=== PATIENT | male | born 1980 | race Caucasian/White ===

== ENCOUNTER 2020-11-23 19:49 | Emergency (ER) | payer MEDICAID, SELFPAY ==
[2020-11-23 20:38] VITALS: BP 168/88; PULSE 83; RESP 16; TEMP 36.7; O2SAT 97; BMI 40.9
--- NOTE | 2020-11-23 21:39 | ED_ITS ---
HPI - Dental/Oral General Chief complaint: Dental/Oral Stated complaint: Dental pain Time Seen by Provider: 11/23/20 21:39 Source: patient Mode of arrival: ambulatory Limitations: no limitations History of Present Illness HPI Narrative: right sided dental pain for the last 3 days. Complaint: tooth pain Onset (ago): day(s) Duration: constant Severity: moderate Associated symptoms: gum swelling Related Data Previous Rx's Medication Instructions Recorded amoxicillin-pot clavulanate 1 tab PO BID #14 tab 11/23/20 [Augmentin] Allergies Allergy/AdvReac Type Severity Reaction Status Date / Time No Known Allergies Allergy Verified 11/23/20 20:37 Review of Systems Constitutional: Constitutional: Reports no additional constitutional complaints Eyes: Eyes: Reports no additional eye complaints ENT: Denies dizziness Cardiovascular: Cardiovascular: Reports no additional cardiovascular complaints Respiratory: Respiratory: Reports as per HPI Gastrointestinal: Gastrointestinal: Reports no additional gastrointestinal complaints Musculoskeletal: Musculoskeletal: Reports no additional musculoskeletal complaints Integumentary/Breasts: Skin/Breast: Denies rash Neurologic: Reports system reviewed and no additional complaints, except as documented, Denies dizziness and Denies Sensory deficit (Neuro) Psychiatric: Psychiatric: Denies anxiety [facility] Past Medical History Medical History Asthma Social History Social History Smoking Status: Current every day smoker Use of substances other than those prescribed or required for medical reasons: No Advance Directives: No Advance Directives Information Provided: Yes Physical Exam Vital Signs: Vital Signs: Last Vital Signs Temp 98.0 F 11/23/20 20:38 Pulse 83 11/23/20 20:38 Resp 16 11/23/20 20:38 BP 168/88 H 11/23/20 20:38 Pulse Ox 97 11/23/20 20:38 Body Mass Index 40.9 Neuro: Sensory Exam: No Sensory deficit (Neuro) Procedures Procedure Narrative Procedure Narrative: 1% without epi with lidocaine used for anesthesia. 11 blade used, pus removed. Patient tolerated procedure well Discharge Plan Discharge Clinical Impression: Dental abscess Patient Disposition: Home, Self-Care Instructions: Dental Abscess (ED) Additional Instructions: half peroxide with water, gargle and spit 3 times a day Prescriptions: New amoxicillin-pot clavulanate [Augmentin] 655-125 mg tablet 1 tab PO BID Qty: 14 RF: 0 Referrals: Physician,None [Primary Care Provider] - 2 days
[2020-11-23] MEDS: NaPROXEN 500 MG TABLET PO (22:08)
[2020-11-23] MEDS: Amoxicillin/Potassium Clav 875 MG TABLET PO (22:08)
[2020-11-23] MEDS: Lidocaine HCl 2 % MPF 5 ML VIAL INFILTRATI (23:07)
--- NOTE | 2020-11-23 23:18 | PC.NURSE ---
PT DENTAL ABSCESS DRAINED FROM RIGHT LOWER SIDE OF MOUTH BY DR. CHANG. LARGE AMOUNT OF PUSS REMOVED WITH GOOD EFFECT.
== END 2020-11-23 23:20 | disposition home or self-care (01) ==
PROVIDERS: Emergency Provider Emergency Medicine
DX: K04.7 Periapical abscess without sinus (principal); K08.89 Other specified disorders of teeth and supporting structures; F17.200 Nicotine dependence, unspecified, uncomplicated; Z71.6 Tobacco abuse counseling
CPT/HCPCS: 41800; 99284

== ENCOUNTER 2021-06-04 17:13 | Emergency (ER) | payer MEDICAID, SELFPAY ==
[2021-06-04 18:16] VITALS: BP 129/78; PULSE 86; RESP 18; TEMP 37; O2SAT 96; BMI 40.8
--- NOTE | 2021-06-04 18:54 | ED.DENTAL ---
HPI - Dental/Oral General Chief complaint: Dental/Oral Stated complaint: dental pain Source: patient Mode of arrival: ambulatory Limitations: no limitations History of Present Illness HPI Narrative: 40-year-old male presents with dental pain for approximately 3 or 4 days. Has known dental caries, and poor dental care. MD Complaint: tooth pain Teeth map: 1. Onset (ago): day(s) (4) Duration: constant Severity: moderate Severity scale (1-10): 7 Relieving factors: nothing Exacerbating factors: chewing, cold, heat and drinking fluids Context: history of dental caries and poor dental care Associated symptoms: gum swelling Treatment prior to arrival: oral analgesic Related Data Previous Rx's Medication Instructions Recorded amoxicillin 875 mg-potassium 1 tab PO BID #14 tab 11/23/20 clavulanate 125 mg tablet (Augmentin) amoxicillin 875 mg-potassium 1 tab PO Q12H 10 Days #20 tab 06/04/21 clavulanate 125 mg tablet (Augmentin) ibuprofen 600 mg tablet 600 mg PO Q6H PRN #60 tab 06/04/21 Allergies Allergy/AdvReac Type Severity Reaction Status Date / Time No Known Allergies Allergy Verified 06/04/21 18:16 Review of Systems Review of Systems: Constitutional: No Fever, No Chills ENT/Mouth: No swallowing difficulty, no change in voice, positive dental pain, positive jaw pain, no facial swelling Eyes: No Eye Pain, No Swelling Cardiovascular: No Chest Pain, No SOB Respiratory: No Cough, No Sputum, No Wheezing, No Smoke Exposure, No Dyspnea Gastrointestinal: No Nausea, No Vomiting, No Diarrhea Genitourinary: No Dysuria Musculoskeletal: No Myalgias Skin: No rash Neuro: No Weakness, No Numbness, No Headache Yes all other systems are reviewed and are negative [facility] Past Medical History Attestation statement: The following information was validated with the patient. Source: old records reviewed Medical History Asthma Social History Social History Advance Directives: No Advance Directives Information Provided: No Physical Exam Vital Signs: Vital Signs: Last Vital Signs Temp 98.6 F 06/04/21 18:16 Pulse 86 06/04/21 18:16 Resp 18 06/04/21 18:16 BP 129/78 06/04/21 18:16 Pulse Ox 96 06/04/21 18:16 Body Mass Index 40.8 Appearance: Alert. Oriented X3. No acute distress. Eyes: Pupils equal, round and reactive to light. ENT: Pharynx normal. Positive dental caries. Positive gingivitis. Neck: Normal inspection. Neck supple. CVS: Normal heart rate and rhythm. Pulses normal. Respiratory: No respiratory distress. Breath sounds normal. Abdomen: Soft and nontender. Skin: Skin warm and dry. Normal skin color. Normal skin turgor. Extremities: No lower extremity edema. Moves all extremities against resistance. Neuro: No motor deficit. No sensory deficit. Cranial nerves 2-12 intact. Course Course Course Narrative: 40-year-old male presents with dental pain. Afebrile, appears nontoxic. Does have visible caries and gingivitis to tooth 19. Will give Augmentin, Toradol, and suggest Orajel as topical if needed. Patient has full range of motion to the neck, no mastoid tenderness, no cervical lymphadenopathy. Patient verbalized understanding of and agrees plan of care discharge home. MDM - Dental/Oral Differential Diagnosis Differential diagnosis: Likely dental caries and toothache Medical Records Attestation: I reviewed the patient's medical records. Discharge Plan Discharge Clinical Impression: Toothache, Dental caries Patient Disposition: Home, Self-Care Instructions: Toothache (ED) Additional Instructions: You were evaluated for dental pain. Please take Augmentin twice a day for the next 10 days. Use ibuprofen 600 mg every 6-8 hours as needed for pain management. You may consider using [id number] Orajel for topical relief. Please follow the directions on the package. Please follow-up with a dentist tomorrow. Thank you for choosing this emergency department for evaluation. Please follow-up with primary care physician as needed. Return to the emergency department for any new, concerning, or worsening symptoms. Prescriptions: New amoxicillin-pot clavulanate [Augmentin] 875-125 mg tablet 1 tab PO Q12H 10 Days Qty: 20 RF: 0 ibuprofen 600 mg tablet 600 mg PO Q6H PRN (Reason: pain) Qty: 60 RF: 0 No Action amoxicillin-pot clavulanate [Augmentin] 875-125 mg tablet 1 tab PO BID Qty: 14 RF: 0 Interventions: ED Discharge Assessment Last Done: 06/04/21 19:50 Discharge Date/Time: 06/04/21 19:50
[2021-06-04] MEDS: Ketorolac Tromethamine 60 MG/2 ML VIAL IM (19:43)
[2021-06-04] MEDS: Amoxicillin/Potassium Clav 875 MG TABLET PO (19:43)
== END 2021-06-04 19:50 | disposition home or self-care (01) ==
PROVIDERS: Emergency Provider Emergency Medicine Emergency Medical Services; PCP Internal Medicine
DX: K02.9 Dental caries, unspecified (principal); Z79.899 Other long term (current) drug therapy
CPT/HCPCS: 96372; 99283; 99284; J1885